=== PATIENT | male | born 1970 | race Two or more races ===

== ENCOUNTER → 2019-05-03 | Day surgery (SDC) | payer OTHER ==
[~2019-05-03] MED LIST: IV RINGERS,LACTATED 1000ML 1,000 ML IV SCH; LIDOCAINE 2% PF 5 ML VIAL. ONE; OMEP20TA63 PO; PROPOFOL 20 ML IV ONE; TELM40TA PO
[2019-05-03 17:25] VITALS: BP 132/78
== END ==
LOC: ENDOS 15:28
PROVIDERS: ATTEND Internal Medicine Gastroenterology
DX: K22.2 Esophageal obstruction (principal); I10 Essential (primary) hypertension; Z72.89 Other problems related to lifestyle; F15.90 Other stimulant use, unspecified, uncomplicated; Z87.891 Personal history of nicotine dependence
CPT/HCPCS: 43235; 43450; J2001; J2704